=== PATIENT | female | born 1975 | race African-American/Black ===

== ENCOUNTER → 2017-02-02 | Outpatient (CLI) | payer OTHER ==
[~2017-02-02] MED LIST: BENZ1TAB61 PO; ETON1VAG VG; HALO0.5T PO; HYDR50TA13 PO; METH750T87 PO
== END | disposition home or self-care (01) ==
LOC: CFH 10:08
PROVIDERS: ATTEND Family Medicine
DX: Z12.31 Encounter for screening mammogram for malignant neoplasm of breast (principal); N64.89 Other specified disorders of breast; M54.5 Low back pain
CPT/HCPCS: G0202

== ENCOUNTER → 2018-02-25 | Outpatient (CLI) | payer OTHER | LOC: CFH 09:48 | PROVIDERS: ATTEND Family Medicine | DX: Z12.31 Encounter for screening mammogram for malignant neoplasm of breast (principal) | CPT/HCPCS: 77067 ==

== ENCOUNTER 2019-01-16 22:08 | Emergency (ER) | payer OTHER ==
[~2019-01-16] VITALS: Ht 160 cm; Wt 67.8 kg
[2019-01-16 22:17] VITALS: BP 102/62
[2019-01-16] MEDS ORDERED: DEXAMETHASONE 4 MG TABLET PO ONE (23:00)
[2019-01-16] MEDS ORDERED: DEXAMETHASONE 4 MG TABLET ONE (23:23)
== END 2019-01-16 23:33 | disposition home or self-care (01) ==
LOC: ED 23:27
DX: J02.0 Streptococcal pharyngitis (principal)
CPT/HCPCS: 99283

== ENCOUNTER → 2019-03-03 | Outpatient (CLI) | payer OTHER | END | disposition home or self-care (01) | LOC: CFH 11:03 | PROVIDERS: ATTEND Family Medicine | DX: Z12.31 Encounter for screening mammogram for malignant neoplasm of breast (principal) | CPT/HCPCS: 77067 ==

== ENCOUNTER → 2019-03-17 | Outpatient (CLI) | payer OTHER | END | disposition home or self-care (01) | LOC: CFH 14:05 | PROVIDERS: ATTEND Family Medicine | DX: N63.13 Unspecified lump in the right breast, lower outer quadrant (principal); N63.21 Unspecified lump in the left breast, upper outer quadrant | CPT/HCPCS: 76642; 77066; G0279 ==

== ENCOUNTER 2019-09-08 17:41 | Emergency (ER) | payer OTHER ==
[~2019-09-08] VITALS: Ht 160 cm; Wt 59.9 kg
[2019-09-08] MEDS ORDERED: ACETAMINOPHEN 500 MG TABLET PO ONE (18:30)
[2019-09-08] MEDS ORDERED: ACETAMINOPHEN 500 MG TABLET ONE (18:47)
--- NOTE | 2019-09-08 18:55 | NUR ---
PT MED NOTED FOR CHAPA PAIN NOW 01/31. PT AWARE OF PLAN FOR CT.
[2019-09-08 19:09] LABS: ALBUMIN 3.8 g/dL (3.4-5.0); ANION GAP 5 mmol/L (5-15); CALCIUM 9.3 mg/dL (8.5-10.1); CHLORIDE 109 mmol/L (98-107)
[2019-09-08 19:15] LABS: CREATININE 0.92 mg/dL (0.55-1.02)
[2019-09-08] MEDS ORDERED: DIPHENHYDRAMINE 12.5MG/5ML, 10ML UDC PO ONE (19:30)
[2019-09-08] MEDS ORDERED: KETOROLAC 30 MG/1 ML IVPush ONE (19:30)
[2019-09-08] MEDS ORDERED: PROCHLORPERAZINE 5 MG/ML, 2ML IVPush ONE (19:30)
[2019-09-08 19:43] LABS: MEAN CORPUSCULAR HGB CONC 32.5 g/dL (32.4-35.8); MEAN CORPUSCULAR VOLUME 101.5 fL (80-100); MEAN PLATELET VOLUME 8.9 fL (7.4-10.4); PLATELET COUNT 232 x10^3/uL (130-400); RED BLOOD COUNT 4.39 x10^6/uL (3.82-5.3); RED CELL DISTRIBUTION WIDTH 12.9 % (9.6-15.2)
[2019-09-08] MEDS ORDERED: KETOROLAC 30 MG/1 ML ONE (19:56)
[2019-09-08] MEDS ORDERED: PROCHLORPERAZINE 5 MG/ML, 2ML ONE (19:56)
[2019-09-08] MEDS ORDERED: DIPHENHYDRAMINE 25 MG CAPSULE ONE (19:57)
[2019-09-08 20:02] LABS: MD YES
[2019-09-08 20:04] LABS: <RBC MORPHOLOGY> NORMAL; LYMPH#(MANUAL) 2.44 x10^3/uL (1-3.4); LYMPHS% (MANUAL) 53 % (22-44); MONOS#(MANUAL) 0.28 x10^3/uL (0.3-2.7); MONOS% (MANUAL) 6 % (2-9); SEG#(MANUAL) 1.89 x10^3/uL (1.8-6.8); SEGS% (MANUAL) 41 % (42-75)
[2019-09-08] MEDS ORDERED: DIPHENHYDRAMINE 12.5MG/5ML, 10ML UDC ONE (20:04)
[2019-09-08 20:05] LABS: <PLATELET ESTIMATE> ADEQUATE; <PLT MORPHOLOGY> NORMAL PLT MORPH
[2019-09-08 20:11] VITALS: BP 116/62
--- NOTE | 2019-09-08 20:38 | NUR ---
Patient given discharge instructions and they have confirmed that they understand the instructions. Patient ambulatory with steady gait. Belongings with patient.
== END 2019-09-08 20:41 | disposition home or self-care (01) ==
LOC: ED 20:25
DX: G44.219 Episodic tension-type headache, not intractable (principal); F12.90 Cannabis use, unspecified, uncomplicated
CPT/HCPCS: 36415; 70450; 80048; 82040; 84703; 85025; 93005; 96374; 96375; 99284; J0780; J1885

== ENCOUNTER 2019-11-28 21:10 | Emergency (ER) | payer BC, OTHER ==
[~2019-11-28] VITALS: Ht 160 cm; Wt 55.7 kg
[~2019-11-28 21:10] MED LIST changes: -HYDR50TA13 PO; +HYDR50TA99 PO
[2019-11-28] MEDS ORDERED: HYDROmorphone 1 MG/ML, 1ML INJ ONE (21:59)
[2019-11-28] MEDS ORDERED: ONDANSETRON 2MG/ML, 2ML ONE (21:59)
[2019-11-28] MEDS ORDERED: HYDROmorphone 2 MG/ML, 1ML IVPush PRN (22:00)
[2019-11-28] MEDS ORDERED: ONDANSETRON 2MG/ML, 2ML IVPush ONE (22:00)
--- NOTE | 2019-11-28 22:10 | NUR ---
Pt c/o severe abd pain and N/V. Pt was dx with H. Pylori and placed on antibiotics but states she is unable to keep meds down. Pt rocking back and forth in bed in acute distress. ERP in to see. IV access obtained and labs drawn. Pt medicated per NOV. UA collected and sent. Pt on pulse ox and bp monitoring. Call light in reach.
[2019-11-28 22:17] LABS: BASOPHILS # (AUTO) 0.03 x10^3/uL (0-0.1); BASOPHILS % (AUTO) 0 % (0-1); EOSINOPHILS # (AUTO) 0.03 x10^3/uL (0-0.4); EOSINOPHILS % (AUTO) 1 % (1-7); LYMPHOCYTES # (AUTO) 3.22 x10^3/uL (1-3.4); LYMPHOCYTES % (AUTO) 44 % (22-44); MD NO; MEAN CORPUSCULAR HEMOGLOBIN 32.1 pg (27.0-34.8); MEAN CORPUSCULAR HGB CONC 32.8 g/dL (32.4-35.8); MEAN CORPUSCULAR VOLUME 97.8 fL (80-100); MEAN PLATELET VOLUME 9.5 fL (7.4-10.4); MONOCYTES # (AUTO) 0.74 x10^3/uL (0.2-0.8); MONOCYTES % (AUTO) 10 % (2-9); NEUTROPHILS # (AUTO) 3.37 x10^3/uL (1.8-6.8); NEUTROPHILS % (AUTO) 46 % (42-75); PLATELET COUNT 226 x10^3/uL (130-400); RED BLOOD COUNT 4.55 x10^6/uL (3.82-5.3); RED CELL DISTRIBUTION WIDTH 13.4 % (9.6-15.2)
[2019-11-28 22:25] LABS: ALANINE AMINOTRANSFERASE 26 U/L (12-78); ALBUMIN 4.1 g/dL (3.4-5.0); ANION GAP 8 mmol/L (5-15); CHLORIDE 107 mmol/L (98-107); CREATININE 1.14 mg/dL (0.55-1.02)
[2019-11-28 22:29] LABS: ALKALINE PHOSPHATASE 80 U/L (45-117); BILIRUBIN,TOTAL 0.5 mg/dL (0.2-1.0); TOTAL PROTEIN 8.2 g/dL (6.4-8.2)
[2019-11-28 22:37] LABS: AMPHETAMINE SCREEN, URINE Negative (Negative); BARBITURATE SCREEN, URINE Negative (Negative); BENZODIAZEPINE SCREEN, URINE Negative (Negative); CANNABINOID SCREEN, URINE Positive (Negative); COCAINE SCREEN, URINE Negative (Negative); METHADONE SCREEN, URINE Negative (Negative); OPIATE SCREEN, URINE Negative (Negative)
--- NOTE | 2019-11-28 22:40 | NUR ---
PT STATES PAIN HAS IMPROVED AND NAUSEA RESOLVED. APPEARS MORE COMFORTABLE AT THIS TIME. AWAITING CT. WARM BLANKET GIVEN. NO FURTHER NEEDS EXPRESSED. CALL LIGHT IN REACH.
[2019-11-28 22:47] LABS: CULTURE INDICATED? YES; MICROSCOPIC INDICATED
--- NOTE | 2019-11-28 23:25 | NUR ---
PT RESTING WITH NO S/S OF ACUTE DISTRESS. PT STATES PAIN CONTINUES TO IMPROVE. VSS. CALL LIGHT IN REACH. PT REQUESTING WATER--AWARE NPO UNTIL CT RESULTS. VERBALIZES UNDERSTANDING.
--- NOTE | 2019-11-29 00:11 | NUR ---
ERP IN TO RECHECK.
[2019-11-29] MEDS ORDERED: ONDANSETRON 2MG/ML, 2ML ONE (00:36)
--- NOTE | 2019-11-29 00:42 | NUR ---
ATTEMPTING TO D/C PT HOME. PT HAD BEEN TOLERATING PO FLUIDS. UPON D/C, PT DRYHEAVING AND STATES SHE IS FEELING NAUSEOUS. NO ACTIVE VOMITING NOTED. DISCUSSED WITH ERP AND ORDER FOR REPEAT 4MG ZOFRAN IV RECEIVED. PT MEDICATED PER NOV AND WILL ATTEMPT TO D/C WHEN ABLE.
[2019-11-29] MEDS ORDERED: ONDANSETRON 2MG/ML, 2ML IVPush ONE (01:00)
[2019-11-29 01:07] VITALS: BP 104/65
[2019-11-29] MEDS ORDERED: OMNIPAQUE 350 MG/ML, 100ML BOTTLE ONE (04:35)
== END 2019-11-29 01:12 | disposition home or self-care (01) ==
LOC: ED 23:56
DX: K29.00 Acute gastritis without bleeding (principal); R10.13 Epigastric pain; F12.129 Cannabis abuse with intoxication, unspecified; R11.10 Vomiting, unspecified; F17.200 Nicotine dependence, unspecified, uncomplicated
CPT/HCPCS: 36415; 74177; 80053; 80307; 81001; 83690; 84703; 85025; 87086; 96374; 96375; 96376; 99285; J1170; J2405; Q9967

== ENCOUNTER → 2020-03-22 | Outpatient (CLI) | payer BC | END | disposition home or self-care (01) | LOC: CFH 15:07 | PROVIDERS: ATTEND Family Medicine | DX: Z12.31 Encounter for screening mammogram for malignant neoplasm of breast (principal); N64.89 Other specified disorders of breast | CPT/HCPCS: 77067 ==